=== PATIENT | male | born 1985 | race Caucasian/White ===

== ENCOUNTER 2024-08-04 13:50 | Emergency (ER) | payer BC ==
[2024-08-04] MEDS ORDERED: dilTIAZem 25 MG/5 ML VIAL ONE (14:31)
[2024-08-04] MEDS ORDERED: Diltiazem HCl/D5W 125 ML ONE (14:31)
[2024-08-04 15:00] LABS: #Basophils 0.09 10x3/uL (0.0-0.2); #Eosinophils Less than 0.03 10x3/uL (0.0-0.7); %Basophils 0.6 % (0.0-1.0); %Eosinophils 0.1 % (0.0-10.0); %Lymphocytes 8.6 % (21.0-51.0); %Monocytes 8.1 % (0.0-10.0); %Neutrophils 82.3 % (42.0-75.0); Hematocrit 51.2 % (42.0-52.0); Hemoglobin 17.5 g/dL (14.0-18.0); Mean Corpuscular HGB CONC 34.2 g/dL (32.0-36.0); Mean Corpuscular Hemoglobin 29.8 pg (27.0-31.0); Mean Corpuscular Volume 87.1 fL (78.0-98.0); Platelet Count 259 10x3/uL (130-400); RBC Distribution Width 12.7 % (11.5-14.5); Red Blood Cell (RBC) Count 5.88 mill/uL (4.70-6.10)
[2024-08-04 15:19] LABS: ALT (SGPT) 26 U/L (8-55); AST (SGOT) 23 U/L (5-34); Albumin 4.2 g/dL (3.5-5.0); Alkaline Phosphatase 104 U/L (40-110); Anion Gap 15 mmol/L (10-20); BUN (Urea Nitrogen) 11 mg/dL (8.9-20.6); Bilirubin, Total 0.4 mg/dL (0.2-1.2); Calc. Creatinine Clearance 0 mL/min (70-130); Calcium 9.9 mg/dL (7.8-10.44); Carbon Dioxide 19 mmol/L (22-29); Chloride 108 mmol/L (98-107); Estimated GFR 90; Glucose 113 mg/dL (70-105); Potassium 3.9 mmol/L (3.5-5.1); Protein, Total 8.2 g/dL (6.0-8.3); Sodium 138 mmol/L (136-145)
[2024-08-04 15:20] LABS: Acetaminophen Less than 10 mcg/mL (Less than 10); Alcohol Less than 10.0 mg/dL (Less than 10); Salicylate Less than 8.0 mg/dL (Less than 8.0)
[2024-08-04 15:24] LABS: Troponin I Less than 0.010 ng/mL (< 0.028)
[2024-08-04] MEDS ORDERED: PROPOFOL 20 ML ONE (17:02)
[2024-08-04 17:22] LABS: Amphetamine Not Detected (NotDetected); Barbiturates Screen Not Detected (NotDetected); Benzodiazepine Screen Not Detected (NotDetected); Cocaine Metabolite Screen Not Detected (NotDetected); Methadone Not Detected (NotDetected); Methamphetamine Not Detected (NotDetected); Opiate Screen Not Detected (NotDetected); Oxycodone Screen Not Detected (NotDetected); Phencyclidine (PCP) Not Detected (NotDetected); THC/Cannabinoid Screen Not Detected (NotDetected); Tricyclic Screen Not Detected (NotDetected)
== END 2024-08-04 18:09 | disposition home or self-care (01) ==
LOC: ERS 13:50
DX: I48.91 Unspecified atrial fibrillation (principal); Z55.0 Illiteracy and low-level literacy
CPT/HCPCS: 36415; 71045; 80053; 80306; 80307; 83735; 83880; 84443; 84484; 85025; 92960; 93005; 94760; 96365; 96366; 99152; J2704